=== PATIENT | female | born 1965 | race Caucasian/White ===

== ENCOUNTER 2016-10-21 00:14 | Emergency (ER) | payer OTHER ==
[~2016-10-21] VITALS: Ht 160 cm; Wt 118.5 kg
[~2016-10-21 00:14] MED LIST: ALBU8.5H3 INH; LANT3I SC; MTF1000T PO; PIOG30TA2 PO; PRAV80TA PO; [UNRECOGNIZED DRUG - CODE] PO
[2016-10-21 00:34] VITALS: Ht 160 cm; Wt 118.5 kg
[2016-10-21] MEDS ORDERED: ONDANSETRON 4 MG INJ IV STA (02:56)
[2016-10-21] MEDS ORDERED: SOD CHLORIDE 0.9% 500 ML IV STA (02:56)
[2016-10-21] MEDS ORDERED: morphine 4 MG/ML VIAL IV STA (02:56)
[2016-10-21 03:11] VITALS: TEMP 98.1
[2016-10-21 03:13] LABS: URINE BLOOD (Dip) POC Trace-lysed (NEGATIVE)
[2016-10-21 03:34] LABS: ADD SCAN DIFF NO
[2016-10-21 03:40] LABS: BASOPHILS % 0.2 % (0.0-2.0); EOSINOPHILS # 0.2 10^3/ul (0.0-0.5); EOSINOPHILS % 1.2 % (0.0-7.0); HEMATOCRIT 35.2 % (37.0-47.0); HEMOGLOBIN 11.9 g/dl (12.0-16.0); LYMPHOCYTES # 1.8 10^3/ul (0.8-2.9); LYMPHOCYTES % 14.3 % (15.0-51.0); MEAN CORPUSCULAR HEMOGLOBIN 30.2 pg (29.0-33.0); MEAN CORPUSCULAR HGB CONC 33.8 g/dl (32.0-37.0); MEAN CORPUSCULAR VOLUME 89.3 fl (82.0-101.0); MEAN PLATELET VOLUME 11.4 fl (7.4-10.4); MONOCYTE # 0.5 10^3/ul (0.3-0.9); MONOCYTES % 3.7 % (0.0-11.0); NEUTROPHILS % 80.2 % (39.0-77.0); PLATELET COUNT 194 10^3/UL (140-415); RED BLOOD COUNT 3.94 10^6/ul (4.20-5.40); RED CELL DISTRIBUTION WIDTH 13.9 % (11.5-14.5); WHITE BLOOD COUNT 12.4 10^3/ul (4.8-10.8)
--- NOTE | 2016-10-21 03:43 | RADRPT ---
PROCEDURE: XR Chest. CLINICAL INDICATION: Abdominal pain TECHNIQUE: AP Portable chest. COMPARISON: 07/28/2014 FINDINGS: The cardiomediastinal silhouette is normal. The lungs are clear. The osseous structures are unrema rkable. IMPRESSION: No acute findings. RPTAT: HIKT .Connor Lin MD, MD Date Time Electronically viewed and signed by .Connor Lin MD, MD on 10/21/2016 03:43 .T/
[2016-10-21 04:05] LABS: ADD UMIC YES; UR BILIRUBIN (Dip) NEGATIVE (NEGATIVE); UR BLOOD (Dip) TRACE (NEGATIVE); UR CLARITY CLEAR (CLEAR); UR COLOR LT. YELLOW (YELLOW); UR GLUCOSE (Dip) NEGATIVE (NEGATIVE); UR KETONES (Dip) NEGATIVE (NEGATIVE); UR LEUKOCYTE ESTERASE (Dip) NEGATIVE (NEGATIVE); UR NITRITE (Dip) NEGATIVE (NEGATIVE); UR TOTAL PROTEIN (Dip) 1+ (NEGATIVE); UR UROBILINOGEN (Dip) 0.2 E.U./dL (0.1-1.0)
[2016-10-21] MEDS ORDERED: INSU100V27 SQ (04:08)
--- NOTE | 2016-10-21 04:08 | RADRPT ---
PROCEDURE: CT Abdomen and pelvis without contrast. CLINICAL INDICATION: Abdominal pain. TECHNIQUE: CT scan of the abdomen and pelvis was performed on a multi-detector high-resolution CT scanner. Contiguous axial images were obtained from the lung bases to the ischial tuberosities wit hout intravenous contrast. Coronal and sagittal reformatted images were also obtained. Images were reviewed on the PACS workstation. One or more of the following dose reduction techniques were used: - Automated exposure control. - Adjustment of the mA and/or kV according to patient size. - Use of iterative reconstruction technique. Exam CTD/vol = 23.72 mGy. Total exam DLP = 1416.98 mGy-cm. COMPARISON: 02/24/2014. FINDINGS: Evaluation of the lung bases demonstrates mild ground-glass opacities suggestive of air trapping. Abdomen: The liver is normal in size. There is no focal mass or dilatation of the biliary tree. T he patient is status post cholecystectomy.. The spleen, pancreas and bilateral adrenal glands are w ithin normal limits. Bilateral kidneys are normal in size with no contour deforming mass identified . There is no radiopaque renal or ureteral calculus identified. There is no hydronephrosis or hydr oureter. There is no retroperitoneal adenopathy. The abdominal aorta is of normal caliber. There is no abnormal bowel wall thickening or distension. There is no bowel obstruction or free air . A normal appendix is identified. There is no diverticulosis or diverticulitis. There is no asci paulette. Pelvis: The bladder is unremarkable. The uterus and adnexa are within normal limits. There is no significant pelvic adenopathy or free fluid. Evaluation of the osseous structures demonstrates no suspicious lytic or blastic lesion. IMPRESSION: No acute abnormality identified within the abdomen and pelvis. Status post cholecystectomy. Mild ground-glass opacities within the lung bases suggestive of air trapping secondary to small airw ays disease .Jesus Johns MD, MD Date Time Electronically viewed and signed by .Jesus Johns MD, MD on 10/21/2016 04:08 .T/
[2016-10-21 04:11] LABS: ALBUMIN 4.2 g/dl (3.3-4.9); ALBUMIN/GLOBULIN RATIO 1.13; BILIRUBIN,INDIRECT 0.3 mg/dl (0-1.1); BILIRUBIN,TOTAL 0.3 mg/dl (0.2-1.3); CALCIUM 9.2 mg/dl (8.4-10.2); CREATININE 0.65 mg/dl (0.44-1.00); POTASSIUM 4.2 mmol/L (3.5-5.1); TOTAL PROTEIN 7.9 g/dl (6.1-8.1)
[2016-10-21 04:13] LABS: URINE RBCS 0-2 /HPF (0)
[2016-10-21 04:14] LABS: UR SQUAMOUS EPITHELIAL CELL OCCASIONAL /HPF (FEW)
[2016-10-21] MEDS ORDERED: ONDA4TAB14 PO (04:17)
[2016-10-21] MEDS ORDERED: TRAM50TA2 PO (04:17)
--- NOTE | 2016-10-21 04:20 | ERD ---
ER Documentation Chief Complaint Date/Time DATE: 10/21/16 TIME: 04:19 Chief Complaint abd pain x1 week +n/v/d HPI This is a 50-year-old female because of abdominal pain for 1 week with nausea vomiting and diarrhea. Abdominal pain is generalized, colicky with no exacerbating or alleviating factors. Vomiting has been nonbilious and nonbloody 2 episodes. Diarrhea has been watery with no blood. No sick contacts. No other current issues. ROS All systems reviewed and are negative except as per history of present illness. Medications Home Meds Active Scripts Ondansetron (Ondansetron Odt) 4 Mg Tab.rapdis, 4 MG PO Q6H Y for NAUSEA AND/OR VOMITING, #10 TAB Prov:YRIS ROMERO. 10/21/16 Tramadol HCl (Tramadol HCl) 50 Mg Tablet, 50 MG PO Q4 Y for PAIN, #20 TAB Prov:YRIS ROMERO S. 10/21/16 Reported Medications Insulin Lispro Protamin/Lispro (Humalog Mix 75-25 Vial) 100 Unit/1 Ml Vial, 50 UNIT SQ WITH BREAKFAST DINNE, VIAL 10/21/16 Albuterol Sulfate* (Proair HFA*) 8.5 Gm Hfa.aer.ad, 2 PUFF INH Q4H Y for WHEEZING AND SOB, INH 02/05/15 Pravastatin Sodium* (Pravachol*) 80 Mg Tablet, 80 MG PO HS, TAB 02/05/15 Pioglitazone Hcl* (Actos*) 30 Mg Tablet, 30 MG PO DAILY, TAB 02/05/15 Metformin* (Glucophage*) 1,000 Mg Tablet, 1000 MG PO BID, TAB 02/24/14 Levothyroxine Sodium (Unithroid) 100 Mcg Tablet, 30 MCG PO DAILY 02/28/11 Discontinued Reported Medications Insulin Glargine* (Lantus*) 100 Unit/Ml Soln, 50 UNIT SC BID, EA 02/24/14 Allergies Allergies: Coded Allergies: No Known Allergy (Unverified , 10/21/16) PMhx/Soc History of Surgery: Yes (APPENDECTOMY, LEFT EYE CATARACT) Anesthesia Reaction: No Hx Neurological Disorder: No Hx Respiratory Disorders: Yes (ALLERGIC RHINITIS) Hx Cardiac Disorders: Yes Hx Psychiatric Problems: No Hx Miscellaneous Medical Probl: No Hx Alcohol Use: No Hx Substance Use: No Hx Tobacco Use: No Smoking Status: Never smoker Physical Exam Vitals Vital Signs Date Time Temp Pulse Resp B/P Pulse Ox O2 Delivery O2 Flow Rate FiO2 10/21/16 03:11 98.1 85 18 109/64 98 Room Air 10/21/16 00:34 98.4 84 18 129/61 96 Physical Exam Const: [] Head: Atraumatic Eyes: Normal Conjunctiva ENT: Normal External Ears, Nose and Mouth. Neck: Full range of motion..~ No meningismus. Resp: Clear to auscultation bilaterally Cardio: Regular rate and rhythm, no murmurs Abd: Soft, non tender, non distended. Normal bowel sounds Skin: No petechiae or rashes Back: No midline or flank tenderness Ext: No cyanosis, or edema Neur: Awake and alert Psych: Normal Mood and Affect Result Diagram: 10/21/16 0320 10/21/16 0320 Results 24 hrs Laboratory Tests Test 10/21/16 03:00 10/21/16 03:16 10/21/16 03:20 Urine Color LT. YELLOW Urine Clarity CLEAR Urine pH Urine Specific [place] Urine Ketones NEGATIVE Urine Nitrite NEGATIVE Urine Bilirubin NEGATIVE Urine Urobilinogen 0.2 E.U./dL Urine Leukocyte Esterase NEGATIVE Urine Microscopic RBC 0-2/HPF Urine Microscopic WBC 0-2/HPF Urine Squamous Epithelial Cells OCCASIONAL/HPF Urine Hemoglobin TRACE Urine Glucose NEGATIVE% Urine Total Protein 1+ Bedside Urine pH (LAB) 6.0 Bedside Urine Protein (LAB) 2+ Bedside Urine Glucose (UA) Negative Bedside Urine Ketones (LAB) Negative Bedside Urine Blood Trace-lysed Bedside Urine Nitrite (LAB) Negative Bedside Urine Leukocyte Esterase (L Negative White Blood Count 12.410^3/ul Red Blood Count 3.9410^6/ul Hemoglobin 11.9g/dl Hematocrit 35.2% Mean Corpuscular Volume 89.3fl Mean Corpuscular Hemoglobin 30.2pg Mean Corpuscular Hemoglobin Concent 33.8g/dl Red Cell Distribution Width 13.9% Platelet Count 06336^3/UL Mean Platelet Volume 11.4fl Neutrophils % 80.2% Lymphocytes % 14.3% Monocytes % 3.7% Eosinophils % 1.2% Basophils % 0.2% Nucleated Red Blood Cells % 0.0/100WBC Neutrophils # 10.010^3/ul Lymphocytes # 1.810^3/ul Monocytes # 0.510^3/ul Eosinophils # 0.210^3/ul Basophils # 0.010^3/ul Nucleated Red Blood Cells # 0.010^3/ul Sodium Level 137mmol/L Potassium Level 4.2mmol/L Chloride Level 103mmol/L Carbon Dioxide Level 28mmol/L Anion Gap 10 Blood Urea Nitrogen 19mg/dl Creatinine 0.65mg/dl Glucose Level 251mg/dl Calcium Level 9.2mg/dl Total Bilirubin 0.3mg/dl Direct Bilirubin 0.00mg/dl Indirect Bilirubin 0.3mg/dl Aspartate Amino Transf (AST/SGOT) 46IU/L Alanine Aminotransferase (ALT/SGPT) 39IU/L Alkaline Phosphatase 140IU/L Total Protein 7.9g/dl Albumin 4.2g/dl Globulin 3.70g/dl Albumin/Globulin Ratio 1.13 Lipase 194U/L Current Medications Medications (Trade) Dose Ordered Sig/Mona Route PRN Reason Start Time Stop Time Status Last Admin Dose Admin Sodium Chloride (NS) 500 ml @ 500 mls/hr Q1H STAT IV 10/21/16 02:56 10/21/16 03:55 DC 10/21/16 03:24 Morphine Sulfate (morphine) 4 mg ONCE STAT IV 10/21/16 02:56 10/21/16 02:58 DC 10/21/16 03:24 Ondansetron HCl (Zofran Inj) 4 mg ONCE STAT IV 10/21/16 02:56 10/21/16 02:58 DC 10/21/16 03:25 Procedures/MDM Medical decision-making: Is a 50-year-old female with undifferentiated abdominal pain. Abdomen remains nonsurgical through multiple reexaminations. At this point pain is resolved. Patient be discharged home with tramadol and Zofran. Return in 8 hours for serial abdominal exams advised. Departure Diagnosis: Primary Impression: Abdominal pain Abdominal location: generalized Qualified Code: R10.84 - Generalized abdominal pain Condition: Stable Patient Instructions: Abdominal Pain YRIS ROMERO Oct 21, 2016 04:20
[2016-10-21 04:45] VITALS: BP 112/58; PULSE 72; RESP 20
== END 2016-10-21 04:46 | disposition home or self-care (01) ==
LOC: E/R 00:14
DX: R10.84 Generalized abdominal pain (principal); R11.2 Nausea with vomiting, unspecified; E11.9 Type 2 diabetes mellitus without complications; Z79.4 Long term (current) use of insulin; Z79.84 Long term (current) use of oral hypoglycemic drugs
CPT/HCPCS: 36415; 71010; 74176; 80053; 81001; 83690; 85025; 96374; 96375; J2270; J2405; J7040; Z7502; 81003

== ENCOUNTER 2017-01-02 05:23 | Emergency (ER) | payer OTHER ==
[~2017-01-02] VITALS: Ht 160 cm; Wt 119.0 kg
[~2017-01-02 05:23] MED LIST changes: +INSU100V27 SQ; -LANT3I SC; +ONDA4TAB14 PO; +TRAM50TA2 PO
[2017-01-02 05:27] VITALS: Ht 160 cm; Wt 119.0 kg
[2017-01-02] MEDS ORDERED: LORAZEPAM 1 MG TAB PO ONE (06:30)
--- NOTE | 2017-01-02 06:35 | ERD ---
ER Documentation Chief Complaint Date/Time DATE: 01/02/17 TIME: 06:33 Chief Complaint shortness of breath w/ chills since 2 hours ago HPI 51-year-old female with history of diabetes, high blood pressure, hyperlipidemia presents with symptoms of shortness of breath, palpitations and chills that started at 2 AM this morning. She describes as a feeling of urgency , she is compared to having to use the restroom to urinate. She has had a similar episode happened to her 2 months ago. She states this happened after getting a phone call from her mother who is in her mid 80s who recently had bad news about her health. She states that she ROS All systems reviewed and are negative except as per history of present illness. Medications Home Meds Active Scripts Hydroxyzine Hcl* (Atarax*) 25 Mg Tab, 25 MG PO Q6H Y for ITCHING, #15 TAB Prov:BROOKE VAZQUEZ PA-C 01/02/17 Ondansetron (Ondansetron Odt) 4 Mg Tab.rapdis, 4 MG PO Q6H Y for NAUSEA AND/OR VOMITING, #10 TAB Prov:YRIS ROMERO 10/21/16 Tramadol HCl (Tramadol HCl) 50 Mg Tablet, 50 MG PO Q4 Y for PAIN, #20 TAB Prov:YRIS ROMERO 10/21/16 Reported Medications Insulin Lispro Protamin/Lispro (Humalog Mix 75-25 Vial) 100 Unit/1 Ml Vial, 50 UNIT SQ WITH BREAKFAST DINNE, VIAL 10/21/16 Albuterol Sulfate* (Proair HFA*) 8.5 Gm Hfa.aer.ad, 2 PUFF INH Q4H Y for WHEEZING AND SOB, INH 02/05/15 Pravastatin Sodium* (Pravachol*) 80 Mg Tablet, 80 MG PO HS, TAB 02/05/15 Pioglitazone Hcl* (Actos*) 30 Mg Tablet, 30 MG PO DAILY, TAB 02/05/15 Metformin* (Glucophage*) 1,000 Mg Tablet, 1000 MG PO BID, TAB 02/24/14 Levothyroxine Sodium (Unithroid) 100 Mcg Tablet, 30 MCG PO DAILY 02/28/11 Allergies Allergies: Coded Allergies: No Known Allergy (Unverified , 10/21/16) PMhx/Soc History of Surgery: Yes (GALLBLADDER) Anesthesia Reaction: No Hx Neurological Disorder: No Hx Respiratory Disorders: No Hx Cardiac Disorders: No Hx Psychiatric Problems: No Hx Miscellaneous Medical Probl: Yes (DM, HYPOTHYROID) Hx Alcohol Use: No Hx Substance Use: No Hx Tobacco Use: No Smoking Status: Never smoker Physical Exam Vitals Vital Signs Date Time Temp Pulse Resp B/P Pulse Ox O2 Delivery O2 Flow Rate FiO2 01/02/17 05:27 97.8 88 20 142/66 99 Physical Exam Const: [] Head: Atraumatic Eyes: Normal Conjunctiva ENT: Normal External Ears, Nose and Mouth. Neck: Full range of motion..~ No meningismus. Resp: Clear to auscultation bilaterally Cardio: Regular rate and rhythm, no murmurs Abd: Soft, non tender, non distended. Normal bowel sounds Skin: No petechiae or rashes Back: No midline or flank tenderness Ext: No cyanosis, or edema Neur: Awake and alert Psych: Normal Mood and Affect Results 24 hrs Laboratory Tests Test 01/02/17 06:51 Bedside Glucose 178mg/dL Current Medications Medications (Trade) Dose Ordered Sig/Mona Route PRN Reason Start Time Stop Time Status Last Admin Dose Admin Lorazepam (Ativan) 1 mg ONCE ONCE PO 01/02/17 06:30 01/02/17 06:31 DC 01/02/17 06:33 Procedures/MDM 51-year-old female presents with symptoms of shortness of breath, anxiety symptoms beginning at 2 AM this morning. She reports that she has had some emotional distress has been told that her mother has not been doing well. I believe the patient's symptoms are most consistent with anxiety. EKG was normal sinus rhythm, and symptoms are not concerning for anginal pain, acute coronary syndrome, pulmonary embolus or dissection. Accu-Chek, blood glucose was was 178, doubt DKA. She was given Ativan in the emergency department, and reports that her symptoms have improved. The case was reviewed and discussed with Dr Batista who agrees with the plan of care. Departure Diagnosis: Primary Impression: Anxiety Condition: BROOKE Toussaint PA-C Jan 02, 2017 06:35
[2017-01-02] MEDS ORDERED: HYDR-842 PO (07:32)
[2017-01-02 07:40] VITALS: BP 138/69; PULSE 82; RESP 20; TEMP 97.8
== END 2017-01-02 07:40 | disposition home or self-care (01) ==
LOC: FTE 05:23
DX: F41.9 Anxiety disorder, unspecified (principal); E11.9 Type 2 diabetes mellitus without complications; E03.9 Hypothyroidism, unspecified; Z79.4 Long term (current) use of insulin; Z79.84 Long term (current) use of oral hypoglycemic drugs
CPT/HCPCS: 82962; 93005; Z7502; Z7610

== ENCOUNTER 2019-03-04 14:58 | Emergency (ER) | payer OTHER ==
[~2019-03-04] VITALS: Ht 160 cm; Wt 118.7 kg
[~2019-03-04 14:58] MED LIST changes: +ACET325T33 PO; -ALBU8.5H3 INH; +ALBU8.5H8 INH; +BENZ-6 PO; +HYDR-842 PO; +MED4DP PO; +OFLO5DRO7 RIGHT EYE; +PENI500T PO; +PHEN177S6 MM; +PIOG30TA12 PO; -PIOG30TA2 PO
[2019-03-04 15:01] VITALS: Ht 160 cm; Wt 118.7 kg
[2019-03-04] MEDS ORDERED: METHYLPREDNISOLONE 125 MG INJ IM ONE (17:30)
[2019-03-04 18:18] VITALS: BP 133/76; PULSE 76; RESP 18
== END 2019-03-04 18:19 | disposition home or self-care (01) ==
LOC: FTE 14:58
DX: J20.9 Acute bronchitis, unspecified (principal); E11.9 Type 2 diabetes mellitus without complications; E03.9 Hypothyroidism, unspecified; Z79.4 Long term (current) use of insulin
CPT/HCPCS: 71046; 87400; 96372; J2930; Z7502